=== PATIENT | female | born 1965 | race Caucasian/White ===

== ENCOUNTER → 2017-05-01 | Outpatient (CLI) | payer OTHER ==
--- NOTE | 2017-05-01 13:27 | CT ---
EXAMINATION TYPE: CT chest abdomen w con DATE OF EXAM: 05/01/2017 COMPARISON: NONE HISTORY: 51-year-old female with upper Abdomen and chest discomfort TECHNIQUE: Contiguous axial scanning of the chest and abdomen following administration of 100 ml Omni paque 300 IV contrast. Delayed images through the kidneys and coronal/sagittal reconstructions perfo rmed. CT DLP: 3105.7 mGycm Automated exposure control for dose reduction was used. FINDINGS: Chest: The heart is upper limits of normal in size without pericardial effusion. Aorta is normal caliber with bovine configuration to the aortic arch. No thoracic lymphadenopathy by CT size criteria. Evaluation of the lungs shows mild diffuse bronchial wall thickening. Tiny 3 mm anterolateral right m idlung pulmonary nodule axial image 26. Minimal hazy density in the left lower lobe axial image 43 pr obably represents atelectasis. No consolidation or pleural effusion. ABDOMEN: Liver is borderline to mildly enlarged measuring 18.6 cm craniocaudal image shows diminished attenuat ion. No focal lesion is seen. Portal venous system is patent. No biliary ductal dilatation. Gallbladder surgically absent. Adrenal glands, right kidney, spleen, and pancreas show no gross anomaly. Extrarenal pelvis on the le ft. No dilated small bowel, free fluid, or free air. Normal appendix. Mild overall stool burden. Mild div erticulosis along the transverse colon without pericolonic inflammatory change. A few scattered prominent but nonenlarged mesenteric lymph nodes measure up to 4 mm. No mesenteric or retroperitoneal lymphadenopathy. Pelvis not imaged. BONES: Mild degenerative disc disease mid to lower thoracic spine. No osseous destructive process. IMPRESSION: 1. MILD DIFFUSE BRONCHIAL WALL THICKENING COULD REPRESENT BRONCHITIS OR CHRONIC ASTHMA. 2. TINY 3 MM ANTERIOR RIGHT MIDLUNG PULMONARY NODULE. A 12 MONTH FOLLOW-UP CT CAN BE CONSIDERED. 3. MILD HEPATOMEGALY. SUSPECT UNDERLYING FATTY INFILTRATION. CORRELATE WITH LFT's, LIPID PROFILE, AND PATIENT RISK FACTORS. 4. MILD DIVERTICULOSIS ALONG THE TRANSVERSE COLON.
== END | disposition home or self-care (01) ==
LOC: RADCTMAIN 11:56
PROVIDERS: ATTEND Family Medicine
DX: R91.1 Solitary pulmonary nodule (principal); K57.90 Diverticulosis of intestine, part unspecified, without perforation or abscess without bleeding; R16.0 Hepatomegaly, not elsewhere classified
CPT/HCPCS: 71260; 74160; Q9967

== ENCOUNTER → 2017-08-11 | Outpatient (CLI) | payer OTHER ==
--- NOTE | 2017-08-11 16:28 | BD ---
EXAMINATION TYPE: MG DEXA axial skeleton. DATE OF EXAM: 08/11/2017 COMPARISON: NONE CLINICAL HISTORY: 52-year-old female postmenopausal screening without HRT Height: 63.5 IN Weight: 275 LBS FRAX RISK QUESTIONS: Alcohol (3 or more units per day): NO Family History (Parent hip fracture): NO Glucocorticoids (More than 3mos): NO (Ex: prednisone, prednisolone, methylprednisolone, dexamethasone, and hydrocortisone). History of Fracture in Adulthood: NO Secondary Osteoporosis: 1. Type 1 Diabetes: NO 2. Hyperthyroidism: NO 3. Menopause before 45: NO 4. Malnutrition: NO 5. Chronic liver disease: PT STATES SHE HAS FATTY LIVER Rheumatoid Arthritis: NO Current Tobacco Use: NO RISK FACTORS HISTORY OF: Active: YES Diet low in dairy products/other sources of calcium: NO Postmenopausal woman: 48 MEDICATIONS: Additional Medications: VIT D EXAM MEASUREMENTS: Bone mineral densitometry was performed using the [employer] System. Bone mineral density as measured about the Lumbar spine is: ----- L1-L4(G/cm2): 1.168 T Score Values are as follows: ----- L2: -0.1 ----- L3: 0.2 ----- L4: -0.7 ----- L1-L4: -0.1 Bone mineral density BASELINE Bone mineral density about the R hip (g/cm2): 1.086 Bone mineral density about the L hip (g/cm2): 1.078 T Score values are as follows: -----R Neck: 0.3 -----L Neck: 0.3 -----R Total: 1.8 -----L Total: 1.7 Bone mineral density BASELINE IMPRESSION: Normal (Values between +1 and -1 indicate normal bone mass). Consider repeating this study in 5 year s or sooner if there is some new clinical indication. NOTE: T-SCORE=SD OF THE YOUNG ADULT MEAN.
--- NOTE | 2017-08-13 08:13 | MM ---
Reason for exam: screening (asymptomatic). Last mammogram was performed 1 year and 1 month ago. History: Patient is postmenopausal. Family history of breast cancer in maternal cousin at age 40. Physical Findings: A clinical breast exam by your physician is recommended on an annual basis and results should be correlated with mammographic findings. MG 3D Screening Mammo W/Cad Bilateral CC and MLO view(s) were taken. Prior study comparison: July 17, 2016, bilateral MG screening mammo w CAD. May 02, 2015, bilateral MG screening mammo w CAD. There are scattered fibroglandular densities. There is no discrete abnormality. No significant changes when compared with prior studies. ASSESSMENT: Negative, BI-RAD 1 RECOMMENDATION: Routine screening mammogram of both breasts in 1 year.
== END ==
LOC: RADMAMWWP 13:56
PROVIDERS: ATTEND Family Medicine
DX: Z12.31 Encounter for screening mammogram for malignant neoplasm of breast (principal); Z78.0 Asymptomatic menopausal state
CPT/HCPCS: 77080; 77063; G0202

== ENCOUNTER → 2018-08-13 | Outpatient (CLI) | payer BC ==
--- NOTE | 2018-08-16 11:37 | MM ---
Reason for exam: screening (asymptomatic). Last mammogram was performed 1 year ago. History: Patient is postmenopausal. Family history of breast cancer in maternal cousin at age 40. Physical Findings: A clinical breast exam by your physician is recommended on an annual basis and results should be correlated with mammographic findings. MG Screening Mammo w CAD Bilateral CC and MLO view(s) were taken. Prior study comparison: August 11, 2017, bilateral MG 3d screening mammo w/cad. July 17, 2016, bilateral MG screening mammo w CAD. There are scattered fibroglandular densities. No significant changes when compared with prior studies. ASSESSMENT: Benign, BI-RAD 2 RECOMMENDATION: Routine screening mammogram of both breasts in 1 year.
== END ==
LOC: RADMAMWWP 09:47
PROVIDERS: ATTEND Midwife
DX: Z12.31 Encounter for screening mammogram for malignant neoplasm of breast (principal)
CPT/HCPCS: 77067

== ENCOUNTER → 2020-09-17 | Outpatient (CLI) | payer OTHER ==
--- NOTE | 2020-09-18 13:24 | MM ---
Reason for exam: screening (asymptomatic). Last mammogram was performed 2 years and 1 month ago. History: Patient is postmenopausal. Family history of breast cancer in maternal cousin at age 40. Physical Findings: A clinical breast exam by your physician is recommended on an annual basis and results should be correlated with mammographic findings. MG Screening Mammo w CAD Bilateral CC and MLO view(s) were taken. Prior study comparison: August 13, 2018, bilateral MG screening mammo w CAD. August 11, 2017, bilateral MG 3d screening mammo w/cad. There are scattered fibroglandular densities. Focal asymmetry left breast. No significant changes when compared with prior studies. ASSESSMENT: Benign, BI-RAD 2 RECOMMENDATION: Routine screening mammogram of both breasts in 1 year.
== END | disposition home or self-care (01) ==
LOC: RADMAMWWP 13:14
PROVIDERS: ATTEND Obstetrics & Gynecology
DX: Z12.31 Encounter for screening mammogram for malignant neoplasm of breast (principal)
CPT/HCPCS: 77067

== ENCOUNTER 2021-08-17 16:05 | Emergency (ER) | payer OTHER ==
--- NOTE | 2021-08-17 16:52 | XR ---
EXAMINATION TYPE: XR chest 2V DATE OF EXAM: 08/17/2021 COMPARISON: NONE HISTORY: Cough and congestion TECHNIQUE: Frontal and lateral views of the chest are obtained. FINDINGS: There is diffuse interstitial opacity consistent with interstitial pneumonia or pulmonary vascular congestion and interstitial edema. The heart size is normal. There is no large pleural effus ion. There is no pneumothorax. The osseous structures are intact. IMPRESSION: Acute cardiopulmonary disease consistent with either CHF or interstitial pneumonia. Clini jared correlation short-term follow-up to resolution is recommended.
[2021-08-17] MEDS ORDERED: ACETAMINOPHEN TAB 500 MG TAB PO STA (17:02)
--- NOTE | 2021-08-17 17:36 | ED ---
General Adult HPI - General Chief complaint: Nausea/Vomiting/Diarrhea Stated complaint: Vomiting,diarrhea Time Seen by Provider: 08/17/21 17:01 Source: patient Mode of arrival: EMS Limitations: no limitations - History of Present Illness Initial comments: Dictation was produced using [employer] dictation software. please excuse any grammatical, word or spelling errors. Chief Complaint: Patient is 56-year-old female presents with 8 days of cough, weakness congestion and sick contacts for coronavirus. History of Present Illness: She is a 48-year-old female she denies any medical history. She states that everyone in her family was tested positive for coronavirus. Patient states she's been symptomatic for 8 days. Patient states she started to feel worse probably her to come to the emergency department today. Patient states that she has mild shortness of breath, nonproductive cough. She has been having fevers. Denies tobacco abuse. The ROS documented in this emergency department record has been reviewed and confirmed by me. Those systems with pertinent positive or negative responses have been documented in the HPI. All other systems are other negative and/or noncontributory. PHYSICAL EXAM: General Impression: Alert and oriented x3, not in acute distress HEENT: Normocephalic atraumatic, extra-ocular movements intact, pupils equal and reactive to light bilaterally, mucous membranes moist. Cardiovascular: Heart regular rate and rhythm Chest: Able to complete full sentences, no retractions, no tachypnea Abdomen: abdomen soft, non-tender, non-distended, no organomegaly Musculoskeletal: Pulses present and equal in all extremities, no peripheral edema Motor: no focal deficits noted Neurological: CN II-XII grossly intact, no focal motor or sensory deficits noted Skin: Intact with no visualized rashes Psych: Normal affect and mood ED course: 56-year-old female presents to the emergency department for symptoms of coronavirus. She has several positive sick contacts. Vital signs upon arrival shows temperature 100.3, 94% on 2 L nasal cannula. She allegedly arrived via EMS and was placed in the waiting room. Sublingual oxygen was removed. Patient is 93% on room air. ambulatory pulse ox is normal. Patient at any point did not have her oxygen dropped below 91-92%. Patient is from virus positive. Chest x-ray shows interstitial opacities consistent with patient meets qualifications for monoclonal antibody administration. Patient is agreeable. Patient observed in emergency department for one hour after antibody infusion found to be in stable medical condition. Patient be discharged with return precautions and covid precautions. EKG interpretation: Ventricular rate 84, normal sinus rhythm,. 134, QRS 76, QTC 389. No NE prolongation, no QTC prolongation, no ST or T-wave changes noted. Old EKG for comparison. Overall, this EKG is unremarkable - Related Data Home Medications Medication Instructions Recorded Confirmed Acetaminophen Tab [Tylenol Tab] 500 mg PO Q6H PRN 08/17/21 08/17/21 Azithromycin [Zithromax Z-pack (6 See Taper PO DAILY 08/17/21 08/17/21 tabs)] Baclofen [Lioresal] 10 mg PO BID PRN 08/17/21 08/17/21 Butalb/APAP/Caff 50-325-40Mg 1 tab PO TID PRN 08/17/21 08/17/21 [Fioricet 50-325-40] Citalopram Hydrobromide [CeleXA] 20 mg PO HS 08/17/21 08/17/21 Dexamethasone 3 mg PO BID 08/17/21 08/17/21 Furosemide [Lasix] 20 mg PO DAILY PRN 08/17/21 08/17/21 Loratadine 10 mg PO DAILY 08/17/21 08/17/21 Pramipexole [Mirapex] 1 mg PO HS 08/17/21 08/17/21 Allergies Allergy/AdvReac Type Severity Reaction Status Date / Time No Known Allergies Allergy Verified 08/17/21 18:36 Review of Systems ROS Statement: Those systems with pertinent positive or pertinent negative responses have been documented in the HPI. ROS Other: All systems not noted in ROS Statement are negative. Past Medical History History of Any Multi-Drug Resistant Organisms: None Reported Past Surgical History: Section, Cholecystectomy Smoking Status: Never smoker Past Alcohol Use History: None Reported Past Drug Use History: None Reported General Exam Limitations: no limitations Course Vital Signs 08/17/21 08/17/21 16:10 18:14 Temperature 100.3 F H 100.2 F H Pulse Rate 94 88 Respiratory 19 18 Rate Blood Pressure 126/80 O2 Sat by Pulse 94 L 93 L Oximetry Medical Decision Making - Lab Data Lab Results 08/17/21 Range/Units 16:23 Coronavirus (PCR) Detected A (Not Detectd) Disposition Clinical Impression: COVID Disposition: HOME SELF-CARE Condition: Good Instructions (If sedation given, give patient instructions): Coronavirus Disease 2019 (COVID-19) Is patient prescribed a controlled substance at d/c from ED?: No Referrals: Chandu Darby MD [Primary Care Provider] - 1-2 days
[2021-08-17] MEDS ORDERED: CASIRIVIMAB/IMDEVIMAB (EUA) 1,200 MG in SODIUM CHLORIDE 0.9% 100 ML IVPB ONE (18:30)
[2021-08-17] MEDS ORDERED: SODIUM CHLORIDE 0.9% 50 ML IVPB ONE (18:30)
[2021-08-17] MEDS ORDERED: KETOROLAC 15 MG/ML 1 ML VIAL IVP STA (18:45)
[2021-08-17 21:20] VITALS: BP 146/84; PULSE 72; RESP 22; TEMP 98.6
== END 2021-08-17 21:20 | disposition home or self-care (01) ==
LOC: EC 16:05
DX: U07.1 COVID-19 (principal); Z90.49 Acquired absence of other specified parts of digestive tract
CPT/HCPCS: 99285; 96374; 93005; 87635; 71046; J1885; Q0243

== ENCOUNTER → 2023-05-01 | Outpatient (CLI) | payer OTHER ==
--- NOTE | 2023-05-04 15:05 | MM ---
Reason for Exam: Screening (asymptomatic). Last mammogram was performed 2 year(s) and 7 month(s) ago. Patient History: Menarche at age 10. First Full-Term at age 18. Postmenopausal. Maternal cousin had breast cancer, age 40. Risk Values: [place] 5 year model risk: 1.2%. NCI Lifetime model risk: 6.7%. Prior Study Comparison: 08/11/2017 Bilateral Screening Mammogram, [facility]. 08/13/2018 Bilateral Screening Mammogram, [facility]. 09/17/2020 Bilateral Screening Mammogram, [facility]. Tissue Density: There are scattered fibroglandular densities. Findings: Analyzed By CAD. Pattern appears symmetrical and stable. Focal asymmetry is stable in the left upper outer breast. No significant interval changes are evident. No suspicious groups of microcalcifications, spiculated or lobular masses, architectural distortion or other secondary signs of malignancy are mammographically apparent. Overall Assessment: Benign, BI-RAD 2 Management: Screening Mammogram of both breasts in 1 year. A negative mammogram report should not preclude additional follow up of suspicious palpable abnormalities. Patient should continue monthly self breast exam. A clinical breast exam by your physician is recommended on an annual basis and results should be correlated with mammographic findings. Electronically signed and approved by: Wilber Spangler D.O. Radiologis
== END | disposition home or self-care (01) ==
LOC: RADMAMWWP 11:51
PROVIDERS: ATTEND Family Medicine
DX: Z12.31 Encounter for screening mammogram for malignant neoplasm of breast (principal); Z78.0 Asymptomatic menopausal state; Z80.3 Family history of malignant neoplasm of breast
CPT/HCPCS: 77067

== ENCOUNTER 2023-11-21 11:19 | Emergency (ER) | payer OTHER ==
--- NOTE | 2023-11-21 12:01 | ED ---
General Adult HPI - General Chief complaint: Extremity Problem,Nontraumatic Stated complaint: R leg swelling Time Seen by Provider: 11/21/23 11:43 Source: patient, RN notes reviewed Mode of arrival: ambulatory Limitations: no limitations - History of Present Illness Initial comments: 58-year-old female presents to the emergency department for evaluation of right lower extremity pain and swelling. Symptoms have been going on for around a week now. She was sent in by urgent care today for further evaluation. She reports pain along her medial leg and into her calf muscle. She also notes some redness to the area. She denies recent fever, chills. She does admit to some mild shortness of breath with exertion. She denies chest pain. - Related Data Home Medications Medication Instructions Recorded Confirmed Acetaminophen Tab [Tylenol Tab] 500 mg PO Q6H PRN 08/17/21 08/17/21 Azithromycin [Zithromax Z-pack (6 See Taper PO DAILY 08/17/21 08/17/21 tabs)] Baclofen [Lioresal] 10 mg PO BID PRN 08/17/21 08/17/21 Butalb/APAP/Caff 50-325-40Mg 1 tab PO TID PRN 08/17/21 08/17/21 [Fioricet 50-325-40] Citalopram Hydrobromide [CeleXA] 20 mg PO HS 08/17/21 08/17/21 Furosemide [Lasix] 20 mg PO DAILY PRN 08/17/21 08/17/21 Loratadine 10 mg PO DAILY 08/17/21 08/17/21 Pramipexole [Mirapex] 1 mg PO HS 08/17/21 08/17/21 dexAMETHasone [Dexamethasone] 3 mg PO BID 08/17/21 08/17/21 Previous Rx's Medication Instructions Recorded Cephalexin [Keflex] 500 mg PO Q6HR #28 cap 11/21/23 Allergies Allergy/AdvReac Type Severity Reaction Status Date / Time erythromycin base Allergy Nausea & Verified 11/21/23 11:33 Vomiting Review of Systems ROS Statement: Those systems with pertinent positive or pertinent negative responses have been documented in the HPI. ROS Other: All systems not noted in ROS Statement are negative. Past Medical History Past Medical History: No Reported History History of Any Multi-Drug Resistant Organisms: None Reported Past Surgical History: Section, Cholecystectomy Past Psychological History: No Psychological Hx Reported Smoking Status: Never smoker Past Alcohol Use History: Occasional Past Drug Use History: None Reported General Exam Limitations: no limitations General appearance: alert, in no apparent distress Head exam: Present: atraumatic, normocephalic, normal inspection Eye exam: Present: normal appearance, PERRL, EOMI. Absent: scleral icterus, conjunctival injection, periorbital swelling ENT exam: Present: normal exam, mucous membranes moist Neck exam: Present: normal inspection. Absent: tenderness, meningismus, lymphadenopathy Respiratory exam: Present: normal lung sounds bilaterally. Absent: respiratory distress, wheezes, rales, rhonchi, stridor Cardiovascular Exam: Present: regular rate, normal rhythm, normal heart sounds. Absent: systolic murmur, diastolic murmur, rubs, gallop, clicks Extremities exam: Present: tenderness, normal capillary refill, calf tenderness (Right-sided), other (DP and PT pulses 2+) Back exam: Present: normal inspection Neurological exam: Present: alert, oriented X3 Psychiatric exam: Present: normal affect, normal mood Skin exam: Present: warm, dry, intact, erythema. Absent: normal color Course Vital Signs 11/21/23 11/21/23 11/21/23 11:31 13:20 15:37 Temperature 98.1 F Pulse Rate 79 80 74 Respiratory 20 18 18 Rate Blood Pressure 141/79 110/80 135/79 O2 Sat by Pulse 98 97 Oximetry 11/21/23 17:06 Temperature 97.9 F Pulse Rate 62 Respiratory 18 Rate Blood Pressure 136/70 O2 Sat by Pulse 99 Oximetry Medical Decision Making - Medical Decision Making Was pt. sent in by a medical professional or institution (, PA, LASTING ROOM SUPERVISOR, urgent care, hospital, or alf...) When possible be specific @ -No Did you speak to anyone other than the patient for history (EMS, parent, family, police, friend...)? What history was obtained from this source @ -No Did you review nursing and triage notes (agree or disagree)? Why? @ -I reviewed and agree with nursing and triage notes Were old charts reviewed (outside hosp., previous admission, EMS record, old EKG, old radiological studies, urgent care reports/EKG's, alf records)? Report findings @ -No old charts were reviewed Differential Diagnosis (chest pain, altered mental status, abdominal pain women, abdominal pain men, vaginal bleeding, weakness, fever, dyspnea, syncope, headache, dizziness, GI bleed, back pain, seizure, CVA, palpatations, mental health, musculoskeletal)? @ -Differential Musculoskeletal Muscular strain, contusion, ligament sprain, fracture, arthritis, septic arthritis, bursitis, cellulitis, muscle spasm, nerve compression, DVT, arterial occlusion, herpes zoster, electrolyte abnormality, tumor.... This is not meant to be in all inclusive list EKG interpreted by me (3pts min.). @ -EKG at 1219 shows sinus rhythm rate 73, VA 175, QRS 86, QTQTc [id number] X-rays interpreted by me (1pt min.). @ -None done CT interpreted by me (1pt min.). @ -CT chest for PE shows no evidence for acute PE U/S interpreted by me (1pt. min.). @ -Ultrasound of the right lower extremity limited by body habitus and pain no obvious DVT This ultrasound was repeated with compression of the veins, no evidence of DVT What testing was considered but not performed or refused? (CT, X-rays, U/S, labs)? Why? @ -None What meds were considered but not given or refused? Why? @ -None Did you discuss the management of the patient with other professionals (professionals i.e. , PA, LASTING ROOM SUPERVISOR, lab, RT, psych nurse, protective services social worker, arterial embalmer, teacher, investment officer, telehealth case manager)? Give summary @ -No Was smoking cessation discussed for >3mins.? @ -No Was critical care preformed (if so, how long)? @ -No Were there social determinants of health that impacted care today? How? (Homelessness, low income, unemployed, alcoholism, drug addiction, transportation, low edu. Level, literacy, decrease access to med. care, penitentiary, rehab)? @ -No Was there de-escalation of care discussed even if they declined (Discuss DNR or withdrawal of care, Hospice)? DNR status @ -No What co-morbidities impacted this encounter? (DM, HTN, Smoking, COPD, CAD, Cancer, CVA, ARF, Chemo, Hep., AIDS, mental health diagnosis, sleep apnea, morbid obesity)? @ -None Was patient admitted / discharged? Hospital course, mention meds given and route, prescriptions, significant lab abnormalities, going to OR and other pertinent info. @ -Discharge. Patient presented to the emergency department for evaluation of right lower extremity pain and swelling. Symptoms have been going on for a week. She admits to shortness of breath. Chest CT for PE shows no acute evidence of PE. Ultrasound of the right lower extremity was obtained which was limited by pain and body habitus. Patient was provided pain control and this was repeated. There is no obvious evidence of DVT.Laboratory studies obtained. WBC within normal limits at 8.8; normal coagulation studies; mild transaminitis. Findings of imaging and laboratory studies were discussed with t amy patient. She will be discharged home with a trial of antibiotics for cellulitis. Patient understanding agreeable with plan. Patient stable at time of discharge. Case discussed with Dr. Young. Undiagnosed new problem with uncertain prognosis? @ -No Drug Therapy requiring intensive monitoring for toxicity (Heparin, Nitro, Insulin, Cardizem)? @ -No Were any procedures done? @ -No Diagnosis/symptom? @ -Cellulitis Acute, or Chronic, or Acute on Chronic? @ -[Acute Uncomplicated (without systemic symptoms) or Complicated (systemic symptoms)? @ -Uncomplicated Side effects of treatment? @ -No Exacerbation, Progression, or Severe Exacerbation? @ -No Poses a threat to life or bodily function? How? (Chest pain, [place], [place], pneumonia, PE, COPD, DKA, ARF, appy, cholecystitis, CVA, Diverticulitis, Homicidal, Suicidal, threat to staff... and all critical care pts) @ -No - Lab Data Result diagrams: 11/21/23 12:13 11/21/23 12:13 Lab Results 11/21/23 11/21/23 11/21/23 Range/Units 12:13 12:13 12:13 WBC 8.8 (3.8-10.6) k/uL RBC 5.43 H (3.80-5.40) m/uL Hgb 15.9 (11.4-16.0) gm/dL Hct 48.7 H (34.0-46.0) % MCV 89.7 (80.0-100.0) fL MCH 29.2 (25.0-35.0) pg MCHC 32.5 (31.0-37.0) g/dL RDW 13.4 (11.5-15.5) % Plt Count 226 (150-450) k/uL MPV 7.8 Neutrophils % 68 % Lymphocytes % 22 % Monocytes % 6 % Eosinophils % 2 % Basophils % 0 % Neutrophils # 5.9 (1.3-7.7) k/uL Lymphocytes # 2.0 (1.0-4.8) k/uL Monocytes # 0.5 (0-1.0) k/uL Eosinophils # 0.2 (0-0.7) k/uL Basophils # 0.0 (0-0.2) k/uL PT 10.4 (10.0-12.5) sec INR 0.9 (<1.2) APTT 22.2 (22.0-30.0) sec Sodium 140 (137-145) mmol/L Potassium 5.0 (3.5-5.1) mmol/L Chloride 109 H (98-107) mmol/L Carbon Dioxide 29 (22-30) mmol/L Anion Gap 2 mmol/L BUN 24 H (7-17) mg/dL Creatinine 0.97 (0.52-1.04) mg/dL Est GFR (CKD-EPI)AfAm 74 (>60 ml/min/1.73 sqM) Est GFR (CKD-EPI)NonAf 64 (>60 ml/min/1.73 sqM) Glucose 99 (74-99) mg/dL Calcium 8.7 (8.4-10.2) mg/dL Total Bilirubin 0.4 (0.2-1.3) mg/dL AST 53 H (14-36) U/L ALT 41 H (4-34) U/L Alkaline Phosphatase 70 (38-126) U/L Total Protein 5.5 L (6.3-8.2) g/dL Albumin 3.2 L (3.5-5.0) g/dL Disposition Clinical Impression: Right leg pain, Cellulitis Disposition: HOME SELF-CARE Condition: Stable Instructions (If sedation given, give patient instructions): Cellulitis (ED), Leg Pain (ED) Additional Instructions: Please follow up with your primary care provider. Return to the emergency department for new or worsening symptoms. Prescriptions: Cephalexin [Keflex] 500 mg PO Q6HR #28 cap Is patient prescribed a controlled substance at d/c from ED?: No Referrals: Luis Lance MD [Primary Care Provider] - 1-2 days
[2023-11-21 12:32] LABS: Basophils % (A) 0 %; Eosinophils # (A) 0.2 k/uL (0-0.7); Eosinophils % (A) 2 %; HCT 48.7 % (34.0-46.0); HGB 15.9 gm/dL (11.4-16.0); Lymphocytes % (A) 22 %; MCH 29.2 pg (25.0-35.0); MCHC 32.5 g/dL (31.0-37.0); MCV 89.7 fL (80.0-100.0); Mean Platelet Volume 7.8; Monocytes # (A) 0.5 k/uL (0-1.0); Monocytes % (A) 6 %; Neutrophils # (A) 5.9 k/uL (1.3-7.7); Neutrophils % (A) 68 %; Platelet Count 226 k/uL (150-450); RBC 5.43 m/uL (3.80-5.40); RDW 13.4 % (11.5-15.5); WBC 8.8 k/uL (3.8-10.6)
[2023-11-21 12:47] LABS: INR 0.9 (<1.2); Partial Thromboplastin Time 22.2 sec (22.0-30.0); Prothrombin Time 10.4 sec (10.0-12.5)
[2023-11-21 12:52] LABS: ALT 41 U/L (4-34); AST 53 U/L (14-36); African American GFR (CKD) 74 (>60 ml/min/1.73 sqM); Albumin 3.2 g/dL (3.5-5.0); Alkaline Phosphatase 70 U/L (38-126); Anion Gap 2 mmol/L; Blood Urea Nitrogen 24 mg/dL (7-17); Calcium 8.7 mg/dL (8.4-10.2); Carbon Dioxide 29 mmol/L (22-30); Chloride 109 mmol/L (98-107); Glucose 99 mg/dL (74-99); Non-African American GFR(CKD) 64 (>60 ml/min/1.73 sqM); Sodium 140 mmol/L (137-145); Total Bilirubin 0.4 mg/dL (0.2-1.3); Total Protein 5.5 g/dL (6.3-8.2)
[2023-11-21] MEDS: KETOROLAC 15 MG/ML 1 ML VIAL IVP STA (13:19)
[2023-11-21] MEDS: ONDANSETRON 4 MG/2 ML VIAL IVP STA (13:20)
[2023-11-21 13:21] VITALS: RESP 18
--- NOTE | 2023-11-21 13:26 | US ---
EXAMINATION TYPE: US venous doppler duplex LE RT DATE OF EXAM: 11/21/2023 1:09 PM COMPARISON: NONE CLINICAL INDICATION: Female, 58 years old with history of pain, swelling; Pain and edema right leg SIDE PERFORMED: Right TECHNIQUE: The lower extremity deep venous system is examined utilizing real time linear array sonog jeff with graded compression, doppler sonography and color-flow sonography. VESSELS IMAGED: Common Femoral Vein Deep Femoral Vein Greater Saphenous Vein * Femoral Vein Popliteal Vein Small Saphenous Vein * Proximal Calf Veins (* superficial vessels) Right Leg: No evidence of DVT as visualized with limited views, technical limitations due to patient 's body habitus and patient unable to tolerate compressions at femoral vein IMPRESSION: Grayscale, color doppler, spectral doppler imaging performed of the deep veins of the lo wer extremities. There is normal flow, compressibility, vascular waveforms.
[2023-11-21] MEDS: HYDROmorphone 1 MG/ML 1 ML SYRINGE IVP STA (15:09)
--- NOTE | 2023-11-21 15:26 | CT ---
EXAMINATION TYPE: CT chest angio for PE CT DLP: 1053.6 mGycm, Automated exposure control for dose reduction was used. DATE OF EXAM: 11/21/2023 3:05 PM COMPARISON: 04/23/2017 CLINICAL INDICATION:Female, 58 years old with history of shortness of breath; Possible blood clot in lower left leg, c/o shortness of breath. TECHNIQUE/CONTRAST: CTA scan of the thorax is performed with IV Contrast, patient injected with 120 cc mL of Isovue 370, MIP images are created and reviewed these are created on a separate workstation.. FINDINGS: Pulmonary Artery: There is no evidence for a filling defect within the pulmonary vasculature to sugge st acute pulmonary embolism. The pulmonary artery is of normal size. Lungs/Pleura: No evidence of focal consolidation, pleural effusion or pneumothorax. Airway: Large airways are patent. Heart: Heart is within normal limits for size. Vasculature: No evidence of aortic aneurysm. Mediastinum: No gross evidence of adenopathy. Musculoskeletal: No acute osseous abnormalities Soft Tissues: Unremarkable. Lower neck: No significant findings. Upper Abdomen: Gallbladder appears surgically absent. IMPRESSION: No evidence of pulmonary embolism.
--- NOTE | 2023-11-21 16:25 | US ---
EXAMINATION TYPE: US venous doppler duplex LE RT DATE OF EXAM: 11/21/2023 4:00 PM COMPARISON: NONE CLINICAL INDICATION: Female, 58 years old with history of pain; Pain right leg. Repeat of ultrasound after pain medication SIDE PERFORMED: right TECHNIQUE: The lower extremity deep venous system is examined utilizing real time linear array sonog jeff with graded compression, doppler sonography and color-flow sonography. VESSELS IMAGED: Common Femoral Vein Deep Femoral Vein Greater Saphenous Vein * Femoral Vein Popliteal Vein Small Saphenous Vein * Proximal Calf Veins (* superficial vessels) Right Leg: No evidence of DVT as visualized IMPRESSION: Grayscale, color doppler, spectral doppler imaging performed of the deep veins of the lo wer extremities. There is normal flow, compressibility, vascular waveforms.
[2023-11-21] MEDS: CEPHALEXIN 500MG STARTER PACK 4 CAP BTL PO STA (17:02)
[2023-11-21 17:25] VITALS: BP 136/70; PULSE 62; TEMP 97.9
== END 2023-11-21 17:08 | disposition home or self-care (01) ==
LOC: EC 11:19
DX: L03.115 Cellulitis of right lower limb (principal); R06.02 Shortness of breath; R74.01 Elevation of levels of liver transaminase levels; Z88.1 Allergy status to other antibiotic agents; Z90.49 Acquired absence of other specified parts of digestive tract
CPT/HCPCS: 36415; 93005; 80053; 85025; 85610; 85730; 93971; 71275; 99284; 96374; 96375 ×2; J2405; J1170; J1885; Q9967

== ENCOUNTER → 2023-12-29 | Outpatient (CLI) | payer OTHER ==
--- NOTE | 2023-12-29 10:35 | US ---
EXAMINATION TYPE: US venous doppler duplex LE RT DATE OF EXAM: 12/29/2023 10:20 AM COMPARISON: NONE CLINICAL INDICATION: Female, 58 years old with history of R22.40 LOCALIZED SWELLING, MASS AND LUMP, U NSPECIF; Swelling in left leg, no h/o dvt, study last month negative SIDE PERFORMED: Right TECHNIQUE: The lower extremity deep venous system is examined utilizing real time linear array sonog jeff with graded compression, doppler sonography and color-flow sonography. VESSELS IMAGED: Common Femoral Vein Deep Femoral Vein Greater Saphenous Vein * Femoral Vein Popliteal Vein Small Saphenous Vein * Proximal Calf Veins (* superficial vessels) Right Leg: Negative for DVT spoke to Camila at office after exam, negative IMPRESSION: 1. Right lower extremity ultrasound negative for deep venous thrombosis.
== END | disposition home or self-care (01) ==
LOC: RADUSWWP 09:57
PROVIDERS: ATTEND Family Medicine
DX: R22.40 Localized swelling, mass and lump, unspecified lower limb (principal)

== ENCOUNTER 2025-02-26 22:19 | Emergency (ER) | payer OTHER ==
--- NOTE | 2025-02-26 22:59 | ED ---
Fever HPI - General Chief Complaint: Fever Stated Complaint: fever Time Seen by Provider: 02/26/25 22:39 Source: patient Mode of arrival: wheelchair Limitations: no limitations - History of Present Illness Initial Comments: This patient is a 59-year-old woman who presents with complaint that she has been having fever and frontal headache going on since last night. Complaint: fever - Related Data Home Medications Medication Instructions Recorded Confirmed Acetaminophen Tab [Tylenol Tab] 500 mg PO Q6H PRN 08/17/21 08/17/21 Azithromycin [Zithromax Z-pack (6 See Taper PO DAILY 08/17/21 08/17/21 tabs)] Baclofen [Lioresal] 10 mg PO BID PRN 08/17/21 08/17/21 Butalb/APAP/Caff 50-325-40Mg 1 tab PO TID PRN 08/17/21 08/17/21 [Fioricet 50-325-40] Citalopram Hydrobromide [CeleXA] 20 mg PO HS 08/17/21 08/17/21 Furosemide [Lasix] 20 mg PO DAILY PRN 08/17/21 08/17/21 Loratadine 10 mg PO DAILY 08/17/21 08/17/21 Pramipexole [Mirapex] 1 mg PO HS 08/17/21 08/17/21 dexAMETHasone [Dexamethasone] 3 mg PO BID 08/17/21 08/17/21 Previous Rx's Medication Instructions Recorded Cephalexin [Keflex] 500 mg PO Q6HR #28 cap 11/21/23 Azithromycin [Zithromax] 0 mg PO DIRECTED #6 tab 02/27/25 Amoxic-Pot Clav 875-125Mg 1 tab PO Q12HR 7 Days #14 tab 03/01/25 [Augmentin 875-125] Allergies Allergy/AdvReac Type Severity Reaction Status Date / Time erythromycin base Allergy Nausea & Verified 02/26/25 22:22 Vomiting Review of Systems ROS Statement: Those systems with pertinent positive or pertinent negative responses have been documented in the HPI. ROS Other: All systems not noted in ROS Statement are negative. Constitutional: Reports: fever Eyes: Denies: eye pain, eye discharge ENT: Denies: ear pain, throat pain, congestion Respiratory: Reports: cough. Denies: dyspnea, wheezes Cardiovascular: Denies: chest pain, palpitations Gastrointestinal: Denies: abdominal pain, nausea, vomiting Genitourinary: Denies: urgency, dysuria, frequency Musculoskeletal: Denies: back pain Skin: Denies: rash Neurological: Reports: as per HPI, headache. 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 Absent: scleral icterus, conjunctival injection ENT exam: Present: normal oropharynx, mucous membranes moist Neck exam: Present: normal inspection, full ROM. Absent: meningismus Respiratory exam: Present: normal lung sounds bilaterally. Absent: respiratory distress, wheezes, rales, rhonchi, stridor, accessory muscle use Cardiovascular Exam: Present: regular rate, normal rhythm, normal heart sounds. Absent: systolic murmur, diastolic murmur, rubs, gallop GI/Abdominal exam: Present: soft. Absent: distended, tenderness, guarding, rebound, rigid, mass Extremities exam: Present: normal inspection, normal capillary refill. Absent: pedal edema, calf tenderness Back exam: Present: normal inspection. Absent: CVA tenderness (R), CVA tenderness (L) Neurological exam: Present: alert Skin exam: Present: warm, dry, intact, normal color. Absent: rash Course Vital Signs 02/26/25 02/26/25 02/27/25 22:22 23:46 01:44 Temperature 99.2 F 99.3 F 98.4 F Pulse Rate 82 66 63 Respiratory 18 16 17 Rate Blood Pressure 125/78 119/70 116/63 O2 Sat by Pulse 97 95 94 L Oximetry Medical Decision Making - Medical Decision Making The patient had chest x-ray that I interpreted as showing left lower pneumonia. No pneumothorax or congestive heart failure. Was pt. sent in by a medical professional or institution (, PA, MAINTENANCE DEPARTMENT TECHNICIAN, urgent care, hospital, or [facility]...) When possible be specific @ -[No] Did you speak to anyone other than the patient for history (EMS, parent, family, police, friend...)? What history was obtained from this source @ -[No] Did you review nursing and triage notes (agree or disagree)? Why? @ -[I reviewed and agree with nursing and triage notes] Were old charts reviewed (outside hosp., previous admission, EMS record, old EKG, old radiological studies, urgent care reports/EKG's, [facility] records)? Report findings @ -[No old charts were reviewed] Differential Diagnosis (chest pain, altered mental status, abdominal pain women, abdominal pain men, vaginal bleeding, weakness, fever, dyspnea, syncope, headache, dizziness, GI bleed, back pain, seizure, CVA, palpatations, mental hea lth, musculoskeletal)? @ -[Differential Fever: Pneumonia, viral URI, endocarditis, myocarditis, pericarditis, otitis, sinusitis, peritonsillar Abscess, retropharyngeal Abscess, epiglottitis, periton itis, appendicitis, Kath cystitis, diverticulitis, hepatitis, colitis, UTI, PID, TOA, pyelonephritis, prostatitis, epididymitis, meningitis, encephalitis, pulmonary embolism, CVA, thyroid storm, pancreatitis, adrenal crisis, cavernous sinus thrombosis, this is not meant to be an all-inclusive list. EKG interpreted by me (3pts min.). @ -[As above] X-rays interpreted by me (1pt min.). @ -[I interpreted as above CT interpreted by me (1pt min.). @ -[None done] U/S interpreted by me (1pt. min.). @ -[None done] What testing was considered but not performed or refused? (CT, X-rays, U/S, labs)? Why? @ -[None] What meds were considered but not given or refused? Why? @ -[None] Did you discuss the management of the patient with other professionals (professionals i.e. , PA, MAINTENANCE DEPARTMENT TECHNICIAN, lab, RT, psych nurse, health and social care teacher, mill worker, teacher, agricultural technical officer, assistant case manager)? Give summary @ -[No] Was smoking cessation discussed for >3mins.? @ -[No] Was critical care preformed (if so, how long)? @ -[No] Were there social determinants of health that impacted care today? How? (Homelessness, low income, unemployed, alcoholism, drug addiction, transportation, low edu. Level, literacy, decrease access to med. care, half-way, rehab)? @ -[No] Was there de-escalation of care discussed even if they declined (Discuss DNR or withdrawal of care, Hospice)? DNR status @ -[No] What co-morbidities impacted this encounter? (DM, HTN, Smoking, COPD, CAD, Cancer, CVA, ARF, Chemo, Hep., AIDS, mental health diagnosis, sleep apnea, morbid obesity)? @ -[None] Was patient admitted / discharged? Hospital course, mention meds given and route, prescriptions, significant lab abnormalities, going to OR and other pe rtinent info. @ -[Patient is 59-year-old woman here to have evaluation of fever with headache. Patient is found to have pneumonia on the chest x-ray. Started antibiotics here and at this point stable for outpatient course. Discussed appropriate further care, follow-up and return parameters. Undiagnosed new problem with uncertain prognosis? @ -[No] Drug Therapy requiring intensive monitoring for toxicity (Heparin, Nitro, Insulin, Cardizem)? @ -[No] Were any procedures done? @ -[No] Diagnosis/symptom? @ -[Acute pneumonia Acute, or Chronic, or Acute on Chronic? @ -[Acute Uncomplicated (without systemic symptoms) or Complicated (systemic symptoms)? @ -[Uncomplicated Side effects of treatment? @ -[No] Exacerbation, Progression, or Severe Exacerbation? @ -[No] Poses a threat to life or bodily function? How? (Chest pain, USA, ND, pneumonia, PE, COPD, DKA, ARF, appy, cholecystitis, CVA, Diverticulitis, Homicidal, Suicidal, threat to staff... and all critical care pts) @ -[No] All treatments are based on ideal body weight as in ED triage - Lab Data Result diagrams: 02/26/25 23:30 02/26/25 23:30 Lab Results 02/26/25 02/26/25 02/26/25 Range/Units 23:30 23:30 23:30 WBC 3.60 L (4.50-10.00) 10*3/uL RBC 5.29 H (4.10-5.20) 10*6/uL Hgb 14.8 (12.0-15.0) g/dL Hct 45.6 (37.2-46.3) % MCV 86.2 (80.0-97.0) fL MCH 28.0 (27.0-32.0) pg MCHC 32.5 (32.0-37.0) g/dL Plt Count 142 (140-440) 10*3/uL MPV 10.4 (9.5-12.2) fL Immature Gran % (Auto) 0.6 % Neutrophils % 68.7 % Lymphocytes % 18.1 % Monocytes % 11.7 % Eosinophils % 0.6 % Basophils % 0.3 % Immature Gran # 0.02 (0.00-0.04) 10*3/uL Neutrophils # 2.48 (1.80-7.70) 10*3/uL Lymphocytes # 0.65 L (0.90-5.00) 10*3/uL Monocytes # 0.42 (0.20-1.00) 10*3/uL Eosinophils # 0.02 L (0.04-0.35) 10*3/uL Basophils # 0.01 (0.00-0.10) 10*3/uL Sodium (137-145) mmol/L Potassium (3.5-5.1) mmol/L Chloride (98-107) mmol/L Carbon Dioxide (22-30) mmol/L Anion Gap mmol/L BUN (7-17) mg/dL Creatinine (0.52-1.04) mg/dL Est GFR (CKD-EPI)AfAm (>60 ml/min/1.73 sqM) Est GFR (CKD-EPI)NonAf (>60 ml/min/1.73 sqM) Glucose (74-99) mg/dL Plasma Lactic Acid Juan (0.7-2.0) mmol/L Calcium (8.4-10.2) mg/dL Total Bilirubin (0.2-1.3) mg/dL AST (14-36) U/L ALT (4-34) U/L Alkaline Phosphatase (38-126) U/L Total Protein (6.3-8.2) g/dL Albumin (3.5-5.0) g/dL Urine Color Yellow Urine Appearance Clear (Clear) Urine pH 5.5 (5.0-8.0) Ur Specific [place] 1.034 (1.001-1.035) Urine Protein Trace H (Negative) Urine Glucose (UA) Negative (Negative) Urine Ketones Trace H (Negative) Urine Blood Negative (Negative) Urine Nitrite Negative (Negative) Urine Bilirubin Negative (Negative) Urine Urobilinogen 4.0 (<2.0) mg/dL Ur Leukocyte Esterase Moderate H (Negative) Urine RBC 1 (0-5) /hpf Urine WBC 8 H (0-5) /hpf Ur Squamous Epith Cells 6 H (0-4) /hpf Urine Bacteria Rare H (None) /hpf Urine Mucus Many H (None) /hpf Influenza Type A (PCR) Not Detected (Not Detectd) Influenza Type B (PCR) Not Detected (Not Detectd) RSV (PCR) Not Detected (Not Detectd) SARS-CoV-2 (PCR) Not Detected (Not Detectd) 02/26/25 02/26/25 Range/Units 23:30 23:30 WBC (4.50-10.00) 10*3/uL RBC (4.10-5.20) 10*6/uL Hgb (12.0-15.0) g/dL Hct (37.2-46.3) % MCV (80.0-97.0) fL MCH (27.0-32.0) pg MCHC (32.0-37.0) g/dL Plt Count (140-440) 10*3/uL MPV (9.5-12.2) fL Immature Gran % (Auto) % Neutrophils % % Lymphocytes % % Monocytes % % Eosinophils % % Basophils % % Immature Gran # (0.00-0.04) 10*3/uL Neutrophils # (1.80-7.70) 10*3/uL Lymphocytes # (0.90-5.00) 10*3/uL Monocytes # (0.20-1.00) 10*3/uL Eosinophils # (0.04-0.35) 10*3/uL Basophils # (0.00-0.10) 10*3/uL Sodium 136 L (137-145) mmol/L Potassium 4.2 (3.5-5.1) mmol/L Chloride 103 (98-107) mmol/L Carbon Dioxide 26 (22-30) mmol/L Anion Gap 7 mmol/L BUN 18 H (7-17) mg/dL Creatinine 0.80 (0.52-1.04) mg/dL Est GFR (CKD-EPI)AfAm >90 (>60 ml/min/1.73 sqM) Est GFR (CKD-EPI)NonAf 80 (>60 ml/min/1.73 sqM) Glucose 98 (74-99) mg/dL Plasma Lactic Acid Juan 0.7 (0.7-2.0) mmol/L Calcium 9.5 (8.4-10.2) mg/dL Total Bilirubin 0.6 (0.2-1.3) mg/dL AST 41 H (14-36) U/L ALT 38 H (4-34) U/L Alkaline Phosphatase 82 (38-126) U/L Total Protein 6.9 (6.3-8.2) g/dL Albumin 4.1 (3.5-5.0) g/dL Urine Color Urine Appearance (Clear) Urine pH (5.0-8.0) Ur Specific [place] (1.001-1.035) Urine Protein (Negative) Urine Glucose (UA) (Negative) Urine Ketones (Negative) Urine Blood (Negative) Urine Nitrite (Negative) Urine Bilirubin (Negative) Urine Urobilinogen (<2.0) mg/dL Ur Leukocyte Esterase (Negative) Urine RBC (0-5) /hpf Urine WBC (0-5) /hpf Ur Squamous Epith Cells (0-4) /hpf Urine Bacteria (None) /hpf Urine Mucus (None) /hpf Influenza Type A (PCR) (Not Detectd) Influenza Type B (PCR) (Not Detectd) RSV (PCR) (Not Detectd) SARS-CoV-2 (PCR) (Not Detectd) Disposition Clinical Impression: Pneumonia Disposition: HOME SELF-CARE Condition: Good Instructions (If sedation given, give patient instructions): Pneumonia (ED) Prescriptions: Azithromycin [Zithromax] 0 mg PO DIRECTED #6 tab Is patient prescribed a controlled substance at d/c from ED?: No Referrals: Luis Lance MD [Primary Care Provider] - 1-2 days
[2025-02-26] MEDS: LACTATED RINGERS 1,000 ML IV ONE (23:34)
[2025-02-26 23:41] LABS: Basophils # (A) 0.01 10*3/uL (0.00-0.10); Basophils % (A) 0.3 %; Eosinophils # (A) 0.02 10*3/uL (0.04-0.35); Eosinophils % (A) 0.6 %; HCT 45.6 % (37.2-46.3); HGB 14.8 g/dL (12.0-15.0); Lymphocytes # (A) 0.65 10*3/uL (0.90-5.00); Lymphocytes % (A) 18.1 %; MCHC 32.5 g/dL (32.0-37.0); MCV 86.2 fL (80.0-97.0); Mean Platelet Volume 10.4 fL (9.5-12.2); Monocytes # (A) 0.42 10*3/uL (0.20-1.00); Monocytes % (A) 11.7 %; Neutrophils # (A) 2.48 10*3/uL (1.80-7.70); Neutrophils % (A) 68.7 %; Platelet Count 142 10*3/uL (140-440); RBC 5.29 10*6/uL (4.10-5.20); RDW 14.3 % (11.5-14.5)
[2025-02-26] MEDS: LACTATED RINGERS 1,000 ML IV SCH (23:46)
[2025-02-27 00:08] LABS: Appearance,Urine Clear (Clear); Bacteria,Urine Rare /hpf; Bilirubin,Urine Negative (Negative); Blood,Urine Negative (Negative); Color,Urine Yellow; Glucose,Urine (UA) Negative (Negative); Ketones,Urine Trace (Negative); Leukocyte Esterase,Urine Moderate (Negative); Mucus,Urine Many /hpf; Nitrite,Urine Negative (Negative); PH, Urine 5.5 (5.0-8.0); Protein,Urine Trace (Negative); RBC,Urine 1 /hpf (0-5); Specific Gravity,Urine 1.034 (1.001-1.035); Squamous Epithelial Cell,Urine 6 /hpf (0-4); WBC,Urine 8 /hpf (0-5)
[2025-02-27 00:10] LABS: ALT 38 U/L (4-34); AST 41 U/L (14-36); African American GFR (CKD) >90 (>60 ml/min/1.73 sqM); Albumin 4.1 g/dL (3.5-5.0); Alkaline Phosphatase 82 U/L (38-126); Anion Gap 7 mmol/L; Blood Urea Nitrogen 18 mg/dL (7-17); Calcium 9.5 mg/dL (8.4-10.2); Carbon Dioxide 26 mmol/L (22-30); Chloride 103 mmol/L (98-107); Glucose 98 mg/dL (74-99); Non-African American GFR(CKD) 80 (>60 ml/min/1.73 sqM); Potassium 4.2 mmol/L (3.5-5.1); Sodium 136 mmol/L (137-145); Total Bilirubin 0.6 mg/dL (0.2-1.3); Total Protein 6.9 g/dL (6.3-8.2)
[2025-02-27 00:18] LABS: Influenza A Not Detected (Not Detectd); Influenza B Not Detected (Not Detectd); RSV Not Detected (Not Detectd)
--- NOTE | 2025-02-27 00:40 | XR ---
EXAM: XR Chest, 2 Views CLINICAL HISTORY: ITS.REASON XR Reason: fever TECHNIQUE: Frontal and lateral views of the chest. COMPARISON: Chest x-ray of 08/17/2021. FINDINGS: Lungs: There is patchy airspace disease at the left lower lobe presumably on the basis of pneumonia. Heart is normal in size. Pleural space: Unremarkable. No pneumothorax. Heart: Unremarkable. No cardiomegaly. Mediastinum: Unremarkable. Normal mediastinal contour. 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 Osteopenia. No acute fracture. IMPRESSION: Patchy airspace disease is noted at the left lower lobe raising concern for left lower lobe pneumonia. Clinical correlation and short-term imaging in 4-6 weeks is advised for follow-up to document resolution.
[2025-02-27] MEDS: MORPHINE SULFATE 4 MG/ML SYRINGE IV STA (00:46)
[2025-02-27] MEDS: cefTRIAXone IN SWFI 1,000 MG/10 ML SYRINGE IVP STA (01:25)
[2025-02-27] MEDS: AZITHROMYCIN 500 MG TAB PO STA (01:25)
[2025-02-27 01:46] VITALS: BP 116/63; PULSE 63; RESP 17; TEMP 98.4
== END 2025-02-27 01:47 | disposition home or self-care (01) ==
LOC: EC 22:19
DX: J18.9 Pneumonia, unspecified organism (principal); Z88.1 Allergy status to other antibiotic agents
CPT/HCPCS: 36415; 80053; 83605; 85025; 81001; 87040; 87636; 71046; 99284; 96361 ×2; 96374; 96375; J2270; J0696

== ENCOUNTER → 2025-04-26 | Outpatient (CLI) | payer OTHER ==
--- NOTE | 2025-04-26 08:23 | MM ---
Reason for Exam: Screening (asymptomatic). Last mammogram was performed 2 year(s) and 0 month(s) ago. Patient History: Menarche at age 10. First Full-Term at age 18. Postmenopausal. Maternal cousin had breast cancer, age 40. Risk Values: [place] 5 year model risk: 1.3%. NCI Lifetime model risk: 6.4%. Prior Study Comparison: 08/13/2018 Bilateral Screening Mammogram, [facility]. 09/17/2020 Bilateral Screening Mammogram, [facility]. 05/01/2023 Bilateral MG screening mammo w CAD, [facility]. Tissue Density: There are scattered areas of fibroglandular density. Findings: Analyzed By CAD. Right breast: There is no suspicious group of microcalcifications or new suspicious mass. Left breast: There is no suspicious group of microcalcifications or new suspicious mass. Overall Assessment: Benign, BI-RAD 2 Management: Screening Mammogram of both breasts in [address] [facility] will attempt to contact patient to return for supplemental views and ultrasound if indicated. Patient should continue monthly self-breast exams. A clinical breast exam by your physician is recommended on an annual basis. This exam should not preclude additional follow-up of suspicious palpable abnormalities. Note on Carolina scores and lifetime risk: 1. A Carolina score greater than 3% is considered moderate risk. If this is the case, consider specialist referral to assess eligibility for a risk reducing agent. 2. If overall lifetime risk for the development of breast cancer is 20% or higher, the patient may qualify for future screening with alternating mammogram and breast MRI. [facility], , 04/26/2025 8:20 AM. Electronically signed and approved by: Floyd Marin DO
== END | disposition home or self-care (01) ==
LOC: RADMAMWWP 07:07
PROVIDERS: ATTEND Internal Medicine
DX: Z12.31 Encounter for screening mammogram for malignant neoplasm of breast (principal); R92.323 Mammographic fibroglandular density, bilateral breasts; Z80.3 Family history of malignant neoplasm of breast; Z78.0 Asymptomatic menopausal state
CPT/HCPCS: 77063; 77067